=== PATIENT | male | born 1975 | race Caucasian/White ===

== ENCOUNTER 2016-04-19 15:46 | Emergency (ER) | payer MEDICAID ==
[2016-04-19] MEDS ORDERED: SODIUM CHLORIDE 0.9% 1,000 ML ONE (17:04)
[2016-04-19] MEDS ORDERED: humuLIN REG INSULIN ONE (17:04)
== END 2016-04-19 18:31 | disposition home or self-care (01) ==
LOC: ER 16:52
DX: E11.65 Type 2 diabetes mellitus with hyperglycemia (principal); Z79.84 Long term (current) use of oral hypoglycemic drugs; I10 Essential (primary) hypertension; Z91.14 Patient's other noncompliance with medication regimen
CPT/HCPCS: 36415; 80047; 80053; 82947; 84484; 85014; 85025; 96361; 96374